=== PATIENT | female | born 1980 | race American Indian/Alaskan Native ===

== ENCOUNTER 2019-09-13 21:27 | Emergency (ER) | payer MEDICAID, OTHER ==
[2019-09-14] MEDS ORDERED: KETOROLAC 60 MG/2 ML INJ IM ONE (00:07)
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
[2019-09-14 04:35] VITALS: BP 138/18
== END 2019-09-14 01:15 | disposition home or self-care (01) ==
LOC: ED 21:27
DX: S39.012A Strain of muscle, fascia and tendon of lower back, initial encounter (principal); G43.909 Migraine, unspecified, not intractable, without status migrainosus; I10 Essential (primary) hypertension; F17.200 Nicotine dependence, unspecified, uncomplicated; Z98.51 Tubal ligation status; Z79.899 Other long term (current) drug therapy; Z98.890 Other specified postprocedural states; V49.49XA Driver injured in collision with other motor vehicles in traffic accident, initial encounter; Y93.89 Activity, other specified; Y92.410 Unspecified street and highway as the place of occurrence of the external cause; Y99.8 Other external cause status
CPT/HCPCS: 72100; 96372; 99283; J1885